=== PATIENT | male | born 2000 | race Caucasian/White ===

== ENCOUNTER 2024-04-11 12:35 | Outpatient (CLI) | payer BC ==
[~2024-04-11 12:35] MED LIST: Magnevist 469MG/ML 20 ML VIAL ONE
== END 2024-04-11 12:36 | disposition home or self-care (01) ==
LOC: SCSMRI 12:35
PROVIDERS: ATTEND Otolaryngology Plastic Surgery within the Head & Neck
DX: H90.3 Sensorineural hearing loss, bilateral (principal); G93.5 Compression of brain
CPT/HCPCS: 70553; A9579